=== PATIENT | female | born 1955 | race American Indian/Alaskan Native ===

== ENCOUNTER 2018-10-25 08:23 | Emergency (ER) | payer OTHER ==
[2018-10-25 08:36] VITALS: BP 113/63
[2018-10-25] MEDS ORDERED: CARAFATE PO ONE (10:10)
--- NOTE | 2018-10-25 10:11 | Emergency Department Report ---
ED General Adult HPI - General Chief complaint: Abdominal Pain Stated complaint: CONGESTION/ABD PAIN Time Seen by Provider: 10/25/18 10:00 Source: patient, RN notes reviewed Mode of arrival: Ambulatory Limitations: No Limitations - History of Present Illness Initial comments: This is a 63-year-old female. The patient is not known to this provider previ ously. She does not have a local primary care doctor. She reports a colonoscopy in 2014, and endorses polypectomy. Otherwise, denies chronic medical conditions. Patient presents to the ER with a complaint of 3 months of intermittent supraumbilical abdominal cramping, excessive flatulence, and intermittent painless nasal discharge, and "bringing up cold." Currently, at the moment, the patient denies headache, neck pain, chest pain, abdominal pain, shortness of breath. She denies rash, fevers, nausea, vomiting, diarrhea, urinary symptoms. She is not currently having shortness of breath. She is not experiencing chest pain. Her symptoms are intermittent, painless, did not radiate anywhere, and did not have exacerbating or relieving factors. Patient is concerned because at work she feels like her flatulence is too excessive. -: Sudden, month(s) Location: mouth, abdomen Consistency: intermittent Improves with: none Worsens with: none - Related Data Previous Rx's Medication Instructions Recorded Last Taken Type Cetirizine HCl [Allergy Relief] 10 mg PO QDAY #30 capsule 10/25/18 Unknown Rx Dicyclomine [Bentyl] 10 mg PO QID PRN #20 capsule 10/25/18 Unknown Rx Fluticasone [Flonase] 1 spray NS QDAY #1 bottle 10/25/18 Unknown Rx Allergies Allergy/AdvReac Type Severity Reaction Status Date / Time No Known Allergies Allergy Unverified 10/25/18 08:35 ED Review of Systems ROS: Stated complaint: CONGESTION/ABD PAIN Other details as noted in HPI Constitutional: denies: fever Eyes: denies: eye discharge, vision change ENT: congestion. denies: epistaxis Respiratory: cough Cardiovascular: denies: chest pain Gastrointestinal: other (excessive flatulence). denies: nausea, vomiting, diarrhea, constipation, hematemesis, melena Genitourinary: denies: urgency Musculoskeletal: denies: arthralgia Skin: denies: lesions Neurological: denies: weakness Hematological/Lymphatic: denies: easy bleeding ED Past Medical Hx - Past Medical History Previous Medical History?: No - Surgical History Past Surgical History?: No - Social History Smoking Status: Former Smoker Substance Use Type: None - Medications Home Medications: Home Medications Medication Instructions Recorded Confirmed Last Taken Type Cetirizine HCl [Allergy Relief] 10 mg PO QDAY #30 capsule 10/25/18 Unknown Rx Dicyclomine [Bentyl] 10 mg PO QID PRN #20 capsule 10/25/18 Unknown Rx Fluticasone [Flonase] 1 spray NS QDAY #1 bottle 10/25/18 Unknown Rx ED Physical Exam - General Limitations: No Limitations General appearance: alert, in no apparent distress - Head Head exam: Present: atraumatic, normocephalic - Eye Eye exam: Present: normal appearance, EOMI. Absent: nystagmus - ENT ENT exam: Present: normal exam, normal orophraynx, mucous membranes moist, normal external ear exam - Neck Neck exam: Present: normal inspection, full ROM. Absent: tenderness, meningismus - Respiratory Respiratory exam: Present: normal lung sounds bilaterally. Absent: respiratory distress, wheezes, rales, rhonchi, stridor - Cardiovascular Cardiovascular Exam: Present: regular rate, normal rhythm, normal heart sounds. Absent: bradycardia, tachycardia, irregular rhythm, systolic murmur, diastolic murmur, rubs, gallop - GI/Abdominal GI/Abdominal exam: Present: soft. Absent: distended, tenderness, guarding, rebound, rigid, pulsatile mass - Extremities Exam Extremities exam: Present: normal inspection, full ROM, other (2+ pulses noted in the bilateral upper, lower extremities. Compartments soft. No long bony tenderness. The pelvis is stable.). Absent: pedal edema, calf tenderness - Back Exam Back exam: Present: normal inspection, full ROM. Absent: tenderness, CVA tenderness (R), CVA tenderness (L), paraspinal tenderness, vertebral tenderness - Neurological Exam Neurological exam: Present: alert, oriented X3, normal gait, other (Extraocular movements intact. Tongue midline. No facial droop. Facial sensation intact to light touch in the V1, V2, V3 distribution bilaterally. 5 and 5 strength in 4 extremities.. Sensation is intact to light touch in 4 extremities.). Absent: motor sensory deficit - Psychiatric Psychiatric exam: Present: normal affect, normal mood - Skin Skin exam: Present: warm, dry, intact, normal color. Absent: rash ED Course Vital Signs 10/25/18 08:33 Temperature 98.2 F Pulse Rate 63 Respiratory 16 Rate Blood Pressure 113/63 O2 Sat by Pulse 98 Oximetry ED Medical Decision Making - Lab Data Vital Signs 10/25/18 08:33 Temperature 98.2 F Pulse Rate 63 Respiratory 16 Rate Blood Pressure 113/63 O2 Sat by Pulse 98 Oximetry - EKG Data -: EKG Interpreted by [facility] EKG shows normal: sinus rhythm Rate: normal - EKG Data 10/25/18 10:31 This is a normal sinus bradycardia rhythm, 56 bpm, normal axis, normal intervals, low voltage, no endorsement of chest pain, this EKG is not consistent with ST elevation myocardial infarction - Medical Decision Making Differential diagnosis, including not limited to: Postnasal drip, flatulence, general medical evaluation Assessment and plan: 63-year-old female who is very well-appearing, has a soft benign belly, unremarkable vital signs, an unremarkable physical exam. Patient does not appear to have an emergent medical condition at this time. She is counseled that flatulence may be normal. She can follow up with an outpatient senior health physics technician for further evaluation of this, if she feels like it is impeding her quality of life. No obvious nasal discharge noted at this time. Saturating well on room air, with no focal pulmonary findings. No obvious oral pharyngeal discharge noted. We will treat the patient with supportive care, and she is welcome to follow up as an outpatient. Critical care attestation.: If time is entered above; I have spent that time in minutes in the direct care of this critically ill patient, excluding procedure time. ED Disposition Clinical Impression: History of nasal congestion, Flatulence symptom Disposition: DC- TO HOME OR SELFCARE Is pt being admited?: No Does the pt Need Aspirin: No Condition: Stable Additional Instructions: Take the medications as needed/directed. Follow up with a primary care doctor within the next month. Follow up with a senior health physics technician within the next 6 weeks. Return to the emergency room right away with it, worsens or different symptoms, or symptoms not present on the initial emergency room evaluation. Referrals: [facility] [Provider Group] - 3-5 Days [facility] [Provider Group] - 3-5 Days
== END 2018-10-25 10:44 | disposition home or self-care (01) ==
LOC: ED 08:23
DX: R10.30 Lower abdominal pain, unspecified (principal); R14.3 Flatulence; Z87.09 Personal history of other diseases of the respiratory system; Z87.891 Personal history of nicotine dependence
CPT/HCPCS: 93005; 93010

== ENCOUNTER 2021-12-05 12:54 | Emergency (ER) | payer SELFPAY ==
[2021-12-05] MEDS ORDERED: KETOROLAC 10 MG TAB PO ONE (17:17)
[2021-12-05] MEDS ORDERED: ACETAMINOPHEN W/CODEINE 300-30 MG TAB PO ONE (17:17)
[2021-12-05] MEDS ORDERED: CYCLOBENZAPRINE 10 MG TAB PO ONE (17:17)
--- NOTE | 2021-12-05 18:35 | Emergency Department Report ---
ED Back Pain/Injury HPI - General Chief Complaint: Back Pain/Injury Stated Complaint: LOWER BACK PAIN Time Seen by Provider: 12/05/21 17:17 Source: patient Limitations: No Limitations - History of Present Illness Initial Comments: 66-year-old black female with no past medical history presents to the emergency department for evaluation of few day history of lower back pain. She states that while working, she has been lifting heavy objects routinely and now has persistent back pain to the left lower side that radiates down her left thigh. She denies fever, dysuria, abdominal pain, nausea, vomiting, and vaginal discharge. She states that pain is worse with movement. She has not taken any medications for symptoms. MD Complaint: back pain -: Gradual, days(s) (3-4) Similar Symptoms Previously: No Place: home Radiation: left leg Severity: severe Severity scale (0 -10): 10 Quality: aching Consistency: constant Worsens With: movement Associated Symptoms: denies: weakness, difficulty walking, difficulty urinating, diaphoresis, incontinence, abdominal pain, loss of appetite, malaise, nausea/vomiting, shortness of breath - Related Data Previous Rx's Medication Instructions Recorded Last Taken Type Cetirizine HCl [Allergy Relief] 10 mg PO QDAY #30 capsule 10/25/18 Unknown Rx Dicyclomine [Bentyl] 10 mg PO QID PRN #20 capsule 10/25/18 Unknown Rx Fluticasone [Flonase] 1 spray NS QDAY #1 bottle 10/25/18 Unknown Rx Naproxen [Naprosyn] 500 mg PO BID #14 tab 12/05/21 Unknown Rx methOCARBAMOL [Robaxin TAB] 750 mg PO Q8H PRN #30 tab 12/05/21 Unknown Rx methylPREDNISolone [Medrol 4MG 4 mg PO DAILY #1 pack 12/05/21 Unknown Rx DOSEPAK (21 tabs)] Allergies Allergy/AdvReac Type Severity Reaction Status Date / Time No Known Allergies Allergy Unverified 10/25/18 08:35 ED Review of Systems ROS: Stated complaint: LOWER BACK PAIN Other details as noted in HPI Comment: All other systems reviewed and negative Constitutional: denies: chills, fever, weakness Respiratory: denies: shortness of breath Cardiovascular: denies: chest pain, palpitations Gastrointestinal: denies: abdominal pain, nausea, vomiting Genitourinary: denies: urgency, dysuria, frequency, hematuria, discharge Musculoskeletal: back pain Neurological: denies: headache, weakness, paresthesias, abnormal gait ED Past Medical Hx - Past Medical History Previous Medical History?: No - Surgical History Past Surgical History?: No - Social History Smoking Status: Former Smoker Substance Use Type: None - Medications Home Medications: Home Medications Medication Instructions Recorded Confirmed Last Taken Type Cetirizine HCl [Allergy Relief] 10 mg PO QDAY #30 capsule 10/25/18 Unknown Rx Dicyclomine [Bentyl] 10 mg PO QID PRN #20 capsule 10/25/18 Unknown Rx Fluticasone [Flonase] 1 spray NS QDAY #1 bottle 10/25/18 Unknown Rx Naproxen [Naprosyn] 500 mg PO BID #14 tab 12/05/21 Unknown Rx methOCARBAMOL [Robaxin TAB] 750 mg PO Q8H PRN #30 tab 12/05/21 Unknown Rx methylPREDNISolone [Medrol 4MG 4 mg PO DAILY #1 pack 12/05/21 Unknown Rx DOSEPAK (21 tabs)] ED Physical Exam - General Limitations: No Limitations General appearance: alert, in no apparent distress - Head Head exam: Present: atraumatic, normocephalic - Eye Eye exam: Present: normal appearance. Absent: conjunctival injection - Neck Neck exam: Present: normal inspection. Absent: tenderness, lymphadenopathy - Respiratory Respiratory exam: Present: normal lung sounds bilaterally. Absent: respiratory distress, wheezes, rales, rhonchi, stridor, chest wall tenderness - Cardiovascular Cardiovascular Exam: Present: regular rate, normal heart sounds - GI/Abdominal GI/Abdominal exam: Present: soft, normal bowel sounds. Absent: distended, tenderness, guarding, rebound, rigid - Extremities Exam Extremities exam: Present: normal inspection - Back Exam Back exam: Present: normal inspection, tenderness (Left lower with radiation down left leg) - Expanded Back Exam Expanded Back exam: Absent: saddle anesthesia Back exam: Positive Straight Leg Raise: Left - Neurological Exam Neurological exam: Present: alert, oriented X3, CN II-XII intact, normal gait, reflexes normal. Absent: motor sensory deficit - Psychiatric Psychiatric exam: Present: normal affect, normal mood - Skin Skin exam: Present: warm, dry, intact, normal color ED Course Vital Signs 12/05/21 13:13 Temperature 99.1 F Pulse Rate 61 Respiratory 18 Rate Blood Pressure 108/73 [Left] O2 Sat by Pulse 99 Oximetry ED Medical Decision Making - Medical Decision Making 66-year-old black female with no past medical history presents to the emergency department for evaluation of few day history of lower back pain. She states that while working, she has been lifting heavy objects routinely and now has persistent back pain to the left lower side that radiates down her left thigh. She denies fever, dysuria, abdominal pain, nausea, vomiting, and vaginal discharge. She states that pain is worse with movement. She has not taken any medications for symptoms. Symptoms and physical exam consistent with left lower back pain with sciatica. Patient will be treated with Medrol Dosepak, Robaxin, and naproxen. She is advised to take medications as prescribed and follow-up with her primary care eddie zarco if no improvement or worsening symptoms. She is advised to return to the emergency department if no improvement or worsening symptoms. She verbalizes understanding of and agreement with plan of care. Critical care attestation.: If time is entered above; I have spent that time in minutes in the direct care of this critically ill patient, excluding procedure time. ED Disposition Clinical Impression: Back pain Qualifiers: Back pain location: low back pain Chronicity: acute Back pain laterality: left Sciatica presence: with sciatica Sciatica laterality: sciatica of left side Qualified Code(s): M54.42 - Lumbago with sciatica, left side Disposition: 01 HOME / SELF CARE / HOMELESS Is pt being admited?: No Does the pt Need Aspirin: No Condition: Stable Instructions: Acute Back Pain, Adult, Sciatica, [id number] Additional Instructions: Take medications as prescribed. Follow-up with your primary care provider if no improvement or worsening symptoms. Return to the emergency department as needed. Prescriptions: methylPREDNISolone [Medrol 4MG DOSEPAK (21 tabs)] 4 mg PO DAILY #1 pack Naproxen [Naprosyn] 500 mg PO BID #14 tab methOCARBAMOL [Robaxin TAB] 750 mg PO Q8H PRN #30 tab PRN Reason: Pain, Moderate (4-6) Referrals: MARK COOLEY MD [Staff Physician] - 3-5 Days Forms: Work/School Release Form(ED) Time of Disposition: 18:36
[2021-12-05 18:57] VITALS: BP 110/72
== END 2021-12-05 18:51 | disposition home or self-care (01) ==
LOC: ED 12:54
DX: M54.50 Low back pain, unspecified (principal); Z87.891 Personal history of nicotine dependence
CPT/HCPCS: 99282